=== PATIENT | male | born 1975 | race Caucasian/White ===

== ENCOUNTER 2016-06-24 02:48 | Emergency (ER) | payer OTHER ==
[~2016-06-24] VITALS: Ht 177.8 cm; Wt 104.0 kg
[~2016-06-24 02:48] MED LIST: AMOXICILLIN500 MG PO; FLEXERIL PO; NAPROSYN500 MG PO; NO; NORVASC PO; ULTRAM50 M1 PO; XANAX0.25 MG PO; ZOFRAN ODT8 MG PO
[2016-06-24 03:46] LABS: HEMATOCRIT 42.3 % (39.0-50.0); HEMOGLOBIN 14.6 g/dl (14.0-18.0); IMMATURE GRANULOCYTES 0.6 % (0.0-1.0); MEAN CORPUSCULAR HGB 31.1 pG CALC (26.0-32.0); MEAN CORPUSCULAR HGB CONC 34.5 g/L CALC (32.0-36.0); NEUT# 5.01 thou/uL (1.82-7.42); RED BLOOD COUNT 4.7 mill/uL (4.70-6.10); RED CELL DISTRI WIDTH 11.4 % (11.5-15.5); URINE BILIRUBIN - DIPSTICK NEGATIVE (NEGATIVE); URINE BLOOD DIPSTICK LARGE (NEGATIVE); URINE CLARITY CLEAR; URINE COLOR YELLOW; URINE GLUCOSE - DIPSTICK NEGATIVE (NEGATIVE); URINE KETONE NEGATIVE (NEGATIVE); URINE LEUK ESTERASE NEGATIVE (NEGATIVE); URINE PH 6.5 (4.5-8.0); URINE PROTEIN - DIPSTICK TRACE mg/dL (NEG-TRACE)
[2016-06-24 04:03] LABS: ALBUMIN 4.6 g/dL (3.2-5.0); ALKALINE PHOSPHATASE 101 u/l (38-126); ANION GAP 17 (6-22 (CALC)); BILIRUBIN, TOTAL 0.5 mg/dL (0.0-1.4); BUN 13 mg/dL (9-20); BUN/CREATININE RATIO 14 (12-20 (CALC)); CALCIUM 9.9 mg/dL (8.4-10.2); CARBON DIOXIDE 28 mmol/l (22-30); CHLORIDE 102 mmol/l (95-108); CREATININE 0.9 mg/dL (0.7-1.3); GFR > 60 ML/MIN (>=60 (CALC)); GFR FOR AFR.AMER. > 60 ML/MIN (>=60 (CALC)); GLUCOSE 92 mg/dL (75-110); POTASSIUM 4.5 mmol/l (3.5-5.1); SGOT/AST 53 u/l (17-59); SGPT/ALT 132 u/l (21-72); SODIUM 143 mmol/l (137-146); TOTAL PROTEIN 7.9 g/dL (6.3-8.2)
[2016-06-24 04:09] LABS: URINE NITRITE - DIPSTICK POSITIVE (Negative)
[2016-06-24 04:11] LABS: URINE RBC 25-50 RBC/hpf (0-5); URINE WBC 0-2 WBC/hpf (0-5)
[2016-06-24 04:12] LABS: URINE BACTERIA FEW hpf; URINE MUCUS FEW hpf (NONE-FEW)
[2016-06-24] MEDS ORDERED: PERCOCET 5/325M1 TAB PO (07:00)
[2016-06-24] MEDS ORDERED: Levaquin PO (07:00)
[2016-06-24] MEDS ORDERED: IBUPROFEN600 MG PO (07:00)
[2016-06-24 07:35] VITALS: BP 032/28
== END 2016-06-24 07:55 | disposition home or self-care (01) | DRG 690 ==
LOC: ED 02:48
PROVIDERS: Emergency Medicine
DX: N13.6 Pyonephrosis (principal); Z87.442 Personal history of urinary calculi; N50.811 Right testicular pain

== ENCOUNTER 2016-09-19 15:27 | Emergency (ER) | payer OTHER ==
[~2016-09-19] VITALS: Ht 177.8 cm; Wt 104.5 kg
[~2016-09-19 15:27] MED LIST changes: +IBUPROFEN600 MG PO; +Levaquin PO; +PERCOCET 5/325M1 TAB PO
[2016-09-19 16:16] LABS: HEMATOCRIT 41.8 % (39.0-50.0); HEMOGLOBIN 14.6 g/dl (14.0-18.0); IMMATURE GRANULOCYTES 0.9 % (0.0-1.0); MEAN CELL VOLUME 89.7 fL CALC (80.0-100.0); MEAN CORPUSCULAR HGB 31.3 pG CALC (26.0-32.0); MEAN CORPUSCULAR HGB CONC 34.9 g/L CALC (32.0-36.0); NEUT# 7.03 thou/uL (1.82-7.42); RED BLOOD COUNT 4.66 mill/uL (4.70-6.10); RED CELL DISTRI WIDTH 11.3 % (11.5-15.5)
[2016-09-19 16:33] LABS: ALBUMIN 4.5 g/dL (3.2-5.0); ALKALINE PHOSPHATASE 76 u/l (38-126); ANION GAP 19 (6-22 (CALC)); BILIRUBIN, TOTAL 0.4 mg/dL (0.0-1.4); BUN 11 mg/dL (9-20); BUN/CREATININE RATIO 11 (12-20 (CALC)); CALCIUM 9.8 mg/dL (8.4-10.2); CARBON DIOXIDE 22 mmol/l (22-30); CHLORIDE 105 mmol/l (95-108); GFR > 60 ML/MIN (>=60 (CALC)); GFR FOR AFR.AMER. > 60 ML/MIN (>=60 (CALC)); GLUCOSE 165 mg/dL (75-110); POTASSIUM 4.2 mmol/l (3.5-5.1); SGOT/AST 27 u/l (17-59); SGPT/ALT 78 u/l (21-72); SODIUM 142 mmol/l (137-146); TOTAL PROTEIN 7.3 g/dL (6.3-8.2)
[2016-09-19 17:43] LABS: URINE BILIRUBIN - DIPSTICK NEGATIVE (NEGATIVE); URINE BLOOD DIPSTICK SMALL (NEGATIVE); URINE CLARITY CLEAR; URINE COLOR YELLOW; URINE GLUCOSE - DIPSTICK NEGATIVE (NEGATIVE); URINE KETONE NEGATIVE (NEGATIVE); URINE LEUK ESTERASE NEGATIVE (Negative); URINE NITRITE - DIPSTICK NEGATIVE (Negative); URINE PH 5.5 (4.5-8.0); URINE PROTEIN - DIPSTICK TRACE mg/dL (NEG-TRACE); URINE SPECIFIC GRAVITY >=1.030
[2016-09-19 17:52] LABS: URINE BACTERIA RARE hpf; URINE SQUAMOUS EPITHELIAL CELL FEW EPI/hpf (0-FEW)
[2016-09-19] MEDS ORDERED: ZOFRAN ODT4 MG PO (20:25)
[2016-09-19] MEDS ORDERED: LORTAB 10-325 M1 TAB PO (20:25)
[2016-09-19] MEDS ORDERED: CIPROFLOXACN500 MG PO (20:25)
[2016-09-19] MEDS ORDERED: METRONIDAZOL500 MG PO (20:25)
[2016-09-19 20:30] VITALS: BP 115/72
== END 2016-09-19 20:42 | disposition home or self-care (01) | DRG 392 ==
LOC: ED 15:27
PROVIDERS: Emergency Medicine
DX: K57.32 Diverticulitis of large intestine without perforation or abscess without bleeding (principal); N20.0 Calculus of kidney; R11.0 Nausea; R10.32 Left lower quadrant pain; R14.0 Abdominal distension (gaseous); Z87.442 Personal history of urinary calculi

== ENCOUNTER 2017-11-15 07:05 | Emergency (ER) | payer SELFPAY ==
[~2017-11-15] VITALS: Ht 177.8 cm; Wt 90.9 kg
[~2017-11-15 07:05] MED LIST changes: +CIPROFLOXACN500 MG PO; +LORTAB 10-325 M1 TAB PO; +METRONIDAZOL500 MG PO; +ZOFRAN ODT4 MG PO
[2017-11-15] MEDS ORDERED: AMLODIPINE BES2.5 MG PO (07:39)
[2017-11-15 08:17] LABS: HEMATOCRIT 40.7 % (39.0-50.0); HEMOGLOBIN 13.9 g/dl (14.0-18.0); IMMATURE GRANULOCYTES 0.3 % (0.0-5.0); MEAN CELL VOLUME 92.1 fL CALC (80.0-100.0); MEAN CORPUSCULAR HGB 31.4 pG CALC (26.0-32.0); MEAN CORPUSCULAR HGB CONC 34.2 g/L CALC (32.0-36.0); RED BLOOD COUNT 4.42 mill/uL (4.70-6.10); RED CELL DISTRI WIDTH 11.7 % (11.5-15.5)
[2017-11-15 08:28] LABS: ALBUMIN 4.3 g/dL (3.2-5.0); ALKALINE PHOSPHATASE 76 u/l (38-126); ANION GAP 14 (6-22 (CALC)); BILIRUBIN, TOTAL 0.6 mg/dL (0.0-1.4); BUN 11 mg/dL (9-20); BUN/CREATININE RATIO 14 (12-20 (CALC)); CARBON DIOXIDE 28 mmol/l (22-30); CHLORIDE 105 mmol/l (95-108); CREATININE 0.8 mg/dL (0.7-1.3); GFR > 60 ML/MIN (>=60 (CALC)); GFR FOR AFR.AMER. > 60 ML/MIN (>=60 (CALC)); LIPASE 23 u/l (23-300); POTASSIUM 4.7 mmol/l (3.5-5.1); SGOT/AST 17 u/l (17-59); SGPT/ALT 40 u/l (21-72); SODIUM 142 mmol/l (137-146); TOTAL PROTEIN 7.1 g/dL (6.3-8.2)
[2017-11-15] MEDS ORDERED: ACCUPRIL5 MG PO (10:16)
[2017-11-15] MEDS ORDERED: XANAX0.25 MG PO ×2 (10:16→10:18)
[2017-11-15] MEDS ORDERED: METRONIDAZOL500 MG PO (13:10)
[2017-11-15] MEDS ORDERED: CIPROFLOXACN500 MG PO (13:10)
[2017-11-15] MEDS ORDERED: MOTRIN400 MG PO (13:10)
[2017-11-15] MEDS ORDERED: HYDROCO/APAP1 TA9 PO (13:12)
[2017-11-15 13:26] VITALS: BP 120/78
[2017-11-15] MEDS ORDERED: ONDANSETRON4 MG PO (13:34)
== END 2017-11-15 13:38 | disposition home or self-care (01) | DRG 392 ==
LOC: ED 07:05
PROVIDERS: Family Medicine
DX: K57.32 Diverticulitis of large intestine without perforation or abscess without bleeding (principal); R10.32 Left lower quadrant pain; R11.0 Nausea; I10 Essential (primary) hypertension; F17.200 Nicotine dependence, unspecified, uncomplicated

== ENCOUNTER 2018-03-26 00:56 | Emergency (ER) | payer OTHER ==
[~2018-03-26] VITALS: Ht 177.8 cm; Wt 96.8 kg
[~2018-03-26 00:56] MED LIST changes: +ACCUPRIL5 MG PO; +AMLODIPINE BES2.5 MG PO; +HYDROCO/APAP1 TA9 PO; +MOTRIN400 MG PO; +ONDANSETRON4 MG PO
[2018-03-26] MEDS ORDERED: AMOXICILLIN500 MG PO (02:16)
[2018-03-26 02:25] VITALS: BP 142/82
== END 2018-03-26 02:27 | disposition home or self-care (01) | DRG 153 ==
LOC: ED 00:56
DX: J02.0 Streptococcal pharyngitis (principal); I10 Essential (primary) hypertension; F41.9 Anxiety disorder, unspecified

== ENCOUNTER 2019-11-17 18:40 | Emergency (ER) | payer SELFPAY ==
[~2019-11-17] VITALS: Ht 177.8 cm; Wt 85.0 kg
[2019-11-17] MEDS ORDERED: NORVASC10 M1 PO (19:26)
[2019-11-17] MEDS ORDERED: MOBIC7.5 M1 PO (19:27)
[2019-11-17] MEDS ORDERED: BUSPAR5 MG PO (19:27)
[2019-11-17] MEDS ORDERED: TRAZODONE50 MG PO (19:28)
[2019-11-17 20:12] LABS: HEMATOCRIT 39.1 % (39.0-50.0); HEMOGLOBIN 13.1 g/dl (14.0-18.0); IMMATURE GRANULOCYTES 0.6 % (0.0-5.0); MEAN CELL VOLUME 90.3 fL CALC (80.0-100.0); MEAN CORPUSCULAR HGB 30.3 pG CALC (26.0-32.0); MEAN CORPUSCULAR HGB CONC 33.5 g/dL CAL (32.0-36.0); NEUT# 3.66 thou/uL (1.82-7.42); RED BLOOD COUNT 4.33 mill/uL (4.70-6.10); RED CELL DISTRI WIDTH 11.7 % (11.5-15.5)
[2019-11-17 20:15] LABS: URINE BILIRUBIN - DIPSTICK NEGATIVE (NEGATIVE); URINE BLOOD DIPSTICK TRACE-INTACT (NEGATIVE); URINE COLOR YELLOW; URINE GLUCOSE - DIPSTICK NEGATIVE (NEGATIVE); URINE KETONE NEGATIVE (NEGATIVE); URINE LEUK ESTERASE NEGATIVE (NEGATIVE); URINE NITRITE - DIPSTICK NEGATIVE (Negative); URINE PH 6.5 (4.5-8.0); URINE PROTEIN - DIPSTICK NEGATIVE (NEG-TRACE); URINE SPECIFIC GRAVITY 1.025; URINE UROBILINOGEN - DIPSTICK 0.2 E.U./dL (0.2)
[2019-11-17 20:26] LABS: ALBUMIN 4.6 g/dL (3.2-5.0); ALKALINE PHOSPHATASE 82 u/l (38-126); AMYLASE 69 u/l (30-110); ANION GAP 10 (6-22 (CALC)); BILIRUBIN, TOTAL 0.5 mg/dL (0.0-1.4); BUN 23 mg/dL (9-20); BUN/CREATININE RATIO 25 (12-20 (CALC)); CARBON DIOXIDE 28 mmol/l (22-30); CHLORIDE 101 mmol/l (95-108); CREATININE 0.9 mg/dL (0.7-1.3); GFR > 60 ML/MIN (>=60 (CALC)); GFR FOR AFR.AMER. > 60 ML/MIN (>=60 (CALC)); LIPASE 56 u/l (23-300); SGOT/AST 33 u/l (17-59); SODIUM 135 mmol/l (137-146); TOTAL PROTEIN 7.4 g/dL (6.3-8.2)
[2019-11-17 20:27] LABS: POTASSIUM 3.6 mmol/l (3.5-5.1)
[2019-11-17 20:30] VITALS: BP 121/71
[2019-11-17 20:38] LABS: MYOGLOBIN 34 ng/mL (0 - 121)
== END 2019-11-17 21:10 | disposition left against medical advice (07) | DRG 179 ==
LOC: ED 18:40
PROVIDERS: Emergency Medicine
DX: U07.1 COVID-19 (principal); R07.9 Chest pain, unspecified; I10 Essential (primary) hypertension